=== PATIENT | female | born 1955 | race Caucasian/White ===

== ENCOUNTER 2018-06-24 15:06 | Inpatient (IN) | payer OTHER ==
[~2018-06-24] VITALS: Ht 157.5 cm; Wt 66.8 kg
[~2018-06-24 15:06] MED LIST: FAMO-63 PO; METF500T16 PO
[2018-06-24 15:56] VITALS: BP 139/86
[2018-06-24] MEDS ORDERED: hydrOXYzine 10 MG TABLET PO PRN (16:00)
[2018-06-24] MEDS ORDERED: 0.9 % SODIUM CHLORIDE 10 ML DISP.SYRIN. IV PRN (16:00)
[2018-06-24] MEDS: IV NORMAL SALINE 1000ML BAG 1,000 ML IV SCH (16:34)
[2018-06-24] MEDS: diphenhydrAMINE 50 MG/ML VIAL IVP PRN (16:34)
[2018-06-24] MEDS ORDERED: FAMO40TA57 PO (16:42)
--- NOTE | 2018-06-24 16:44 | PDOC2 ---
GI CONSULT Reason For Consult: Possible obstructive jaundice HPI: HPI: 62 y/o female directly admitted by PCP. Has been ill for 3 weeks w/ pruritus, dark urine, pale stools, decreased appetite, and occasionally felt "queasy." Thought she started looking yellow about 10 days ago. Her had an appointment yesterday and she went along - jaundice was noted and she was advised to follow-up for labs today. Bili 11.6, Alk Phos 403, AST 112, ALT 211. Normal INR, WBC, and Hgb. Cr was 1.17. Hasn't had abdominal imaging - US ordered. H/o GERD controlled w/ Pepcid QD. Lately has noted occasional globus - felt in throat w/ solids, not w/ every meal. No odynophagia. No n/v. No abd pain. No diarrhea or constipation. No hematochezia or melena. H/o bariatric surgery in (performed in area) - she recalls "stapling." She lost 100 pounds after that surgery, gained about 50 back, and then lost about 40 w/ Weight [employer]. Has been losing weight unintentionally recently. Had an EGD in 2003 (w/ bariatric surgery noted) and normal colonoscopy w/ Dr. Wallace in 2011. Denies GB, liver, or pancreas history. Had a cardiac scan recently that showed calcifications; she has an appointment scheduled w/ cardiology. She also was treated w/ atbx for UTI last week. RN asks for IV Benadryl for itching - has Atarax ordered but is NPO now for US. PMH: PMH: DM, GERD, UTI lumbar fusion, tonsillectomy, appendectomy, hysterectomy, rotator cuff repair, bariatric surgery FH: Family History: Cancer (breast - mother, sister (twice), aunt) ROS: GEN: Denies fevers, chills, sweats HEENT: Denies blurred vision, sore throat CV: Denies chest pain RESP: Denies shortness of air, cough GI: Per HPI : +dark urine ENDO: +weight loss NEURO: Denies confusion, dizziness MSK: Denies weakness, joint pain/swelling SKIN: +pruritus +jaundice Vitals: Vitals: Vital Signs Date Time Temp Pulse Resp B/P (MAP) Pulse Ox O2 Delivery O2 Flow Rate FiO2 06/24/18 15:56 97.8 102 14 139/86 (103) 96 Room Air 97.8 Labs: Labs: Laboratory Tests Test 06/24/18 16:08 Glucose (Fingerstick) 230 mg/dL (70-99) Allergies: Coded Allergies: codeine (Verified Allergy, Unknown, 04/13/14) PE: GEN: NAD HEENT: Atraumatic, PERRLA LUNGS: CTAB HEART: RRR ABD: NABS, S/ND/NT EXTREMITY: No edema SKIN: +jaundice NEURO/PSYCH: A & O 3 A/P: A/P: Pruritus, dark urine, pale stools, anorexia, weight loss Elevated bilirubin and Alk Phos GERD - on H2 navin, EGD in 2003 H/o bariatric surgery - ?gastric stapling in CRC screen - normal in 2011 -- Note orders to recheck labs in a.m. and for abd US. Await these. Gave okay for IV Benadryl, will also add Pepcid. ?additional testing later to better define anatomy w/ bariatric surgery history MEHRAN BREWSTER Jun 24, 2018 16:44
[2018-06-24 19:00] VITALS: BP 136/80
[2018-06-24] MEDS: FAMOTIDINE 20 MG TABLET. PO SCH (20:28)
[2018-06-24] MEDS: hydrOXYzine PAMOATE 25 MG CAPSULE PO PRN (20:50)
[2018-06-24 23:59] VITALS: BP 137/80
[2018-06-25] VITALS (7 sets, daily range): BP systolic 118–144; BP diastolic 60–80
[2018-06-25] MEDS: IV NORMAL SALINE 1000ML BAG 1,000 ML IV SCH ×2 (05:54→19:30)
[2018-06-25 07:15] LABS: ALBUMIN 2.6 g/dL (3.4-5.0); CALCIUM 8.6 mg/dL (8.5-10.1); CREATININE 0.7 mg/dL (0.6-1.0); DIRECT BILIRUBIN 8.9 mg/dL (0.0-0.2); GFR 84.2; POTASSIUM 3.5 mmol/L (3.5-5.1); TOTAL BILIRUBIN 10.4 mg/dL (0.2-1.0); TOTAL PROTEIN 6.2 g/dL (6.4-8.2)
--- NOTE | 2018-06-25 07:49 | RAD ---
Abdominal ultrasound, 06/24/2018: HISTORY: Jaundice, itching, abnormal labs, weight loss The gallbladder is distended and contains a small amount of echogenic material along its posterior wall without definite posterior acoustic shadowing. The appearance suggests sludge, although tiny calculi cannot be excluded. The gallbladder wall is not thickened. The intrahepatic ducts and common hepatic duct are dilated. The common hepatic duct measures 18 mm. The common bile duct is dilated down to the level of the head of the pancreas where there appears to be a mass in the pancreatic head region. This hypoechoic structure measures 2.0 x 2.6 x 3.0 cm. The spleen is of normal size. There is a 4.1 cm cyst in the upper pole of the right kidney. The kidneys are otherwise unremarkable. There is atherosclerotic plaquing of the abdominal aorta without evidence of aneurysm. The inferior vena cava is unremarkable. No free fluid is evident in the abdomen. IMPRESSION: 1. Probable mass in the pancreatic head with associated extrahepatic and intrahepatic biliary obstruction. 2. Dilated gallbladder containing sludge. Tiny gallstones cannot be excluded. 3. Right renal cyst. 4. Pancreatic protocol CT scanning is suggested for further evaluation. Electronically signed by: Nolan Still MD (06/25/2018 7:46 AM) [facility]
--- NOTE | 2018-06-25 08:08 | PDOC1 ---
H & P. HPI: Ms. Padilla is a 62-year-old female with past medical history of type 2 diabetes, subclinical hypothyroidism, GERD, who presented to clinic on 06/23/18 with her for his appointment. She was noted to be acutely jaundiced and a physical exam and labs were performed. Labs are significant for elevated bilirubin at 11.5, conjugated hyperbilirubinemia, elevated alkaline phosphatase and AST/ALT. CBC and INR were unremarkable. She was also noted to have a mild acute kidney injury with creatinine at 1.17, baseline done 6 months ago was 0.7 , with normal GFR. She notes symptoms of fatigue, generalized itching, decreased appetite, dark urine, and became aware that her skin was turning slightly yellow approximately 10 days ago. Denies fever, chills. She has had approximately 7-1/2 pounds weight loss since her April 2018 appointment with no significant change in diet, though she has had decreased appetite. She was treated for urinary tract infection last week, which has resolved. She was also started on Lipitor approximately 2-3 weeks ago and this medication was stopped on 06/19/18 out of concern that it was causing itching, but upon reflection patient notes that the itching seemed to started prior to starting lipitor. Of note she had labs performed in October 2017 which were unremarkable including normal bilirubin, normal AST/ALTs, normal hemoglobin. ROS: Constitutional: Denies fever, chills; admits fatigue, weight loss, decreased appetite HEENT: Denies sore throat, vision changes Cardio: Denies chest pain, dyspnea with exertion, syncope, palpitations, edema Pulmonary: Denies shortness of breath, cough, wheezing GI: Denies nausea, vomiting, diarrhea, constipation, abdominal pain : Denies dysuria, frequency, urgency, incontinence Skin: Denies new lesions; admits jaundice, generalized itching Neuro: Denies weakness, paresthesias PMH: As above FAMILY HX: Father from heart attack, mother had heart disease, rheumatoid arthritis, stroke, cancer of unknown primary source. Son has hypertension. A sibling has cancer of unknown primary source. SOCIAL HX: Never smoker, social alcohol use, less than once a month. No recreational drug use. SURGICAL HX: Bariatric surgery in the 1980s, tonsillectomy. MEDS: Reviewed and reconciled ALLERGIES: Reviewed PE: Alert, oriented, no acute distress, ill-appearing EOMI, sclera icteric Neck supple RRR, no murmur CTAB, no wheezes, crackles or rhonchi Soft, NT, ND, normal bowel sounds, no rebound, guarding. Negative Wang's sign. No edema, cyanosis. Normal capillary refill. Jaundice Calm, cooperative, mood/affect within normal limits ASSESSMENT & PLAN: Conjugated hyperbilirubinemia, concern for obstruction Likely pancreatic head mass on US, await CT Generalized itching, likely secondary to hyperbilirubinemia Acute kidney injury, resolved Type 2 diabetes Subclinical hypothyroidism GERD GI following Hydroxyzine PRN itching Discussed findings of US with patient TRUSTY,ESTELA Ryder MD Jun 25, 2018 08:08
--- NOTE | 2018-06-25 09:25 | NUR ---
SW following for discharge planning. Discussed with RN, pt is from home with and gets around fine. RN awaiting scans and GI consult. RN advised no SW needs at this time. SW will continue to follow.
[2018-06-25] MEDS ORDERED: CONTRAST GIVEN. MC PRN (10:00)
[2018-06-25] MEDS ORDERED: IOHEXOL 300 MG/ML 100ML VIAL. IV ONE (10:00)
[2018-06-25] MEDS: diphenhydrAMINE 50 MG/ML VIAL IVP PRN (10:31)
--- NOTE | 2018-06-25 13:07 | PDOC ---
Subjective: Subjective: Doing okay, says discussed US results w/ Dr. Perez. Objective: Vital Signs: Vital Signs Date Time Temp Pulse Resp B/P (MAP) Pulse Ox O2 Delivery O2 Flow Rate FiO2 06/25/18 07:00 98.4 72 17 130/77 (94) 98 Room Air 98.4 Labs: Laboratory Tests Test 06/24/18 16:08 06/24/18 20:18 06/25/18 05:35 06/25/18 07:55 Glucose (Fingerstick) 230 mg/dL 149 mg/dL 172 mg/dL Sodium Level 139 mmol/L Potassium Level 3.5 mmol/L Chloride Level 103 mmol/L Carbon Dioxide Level 23 mmol/L Anion Gap 13 Blood Urea Nitrogen 14 mg/dL Creatinine 0.7 mg/dL Estimated GFR (Cockcroft-Gault) 84.2 Glucose Level 163 mg/dL Calcium Level 8.6 mg/dL Total Bilirubin 10.4 mg/dL Direct Bilirubin 8.9 mg/dL Aspartate Amino Transf (AST/SGOT) 103 U/L Alanine Aminotransferase (ALT/SGPT) 213 U/L Alkaline Phosphatase 408 U/L Total Protein 6.2 g/dL Albumin 2.6 g/dL Test 06/25/18 11:46 Glucose (Fingerstick) 152 mg/dL Imaging: Abd US IMPRESSION: 1. Probable mass in the pancreatic head with associated extrahepatic and intrahepatic biliary obstruction. 2. Dilated gallbladder containing sludge. Tiny gallstones cannot be excluded. 3. Right renal cyst. 4. Pancreatic protocol CT scanning is suggested for further evaluation. Abd CT pending PE: GEN: NAD LUNGS: CTAB HEART: RRR ABD: S/ND/NT NEURO/PSYCH: A & O 3 A/P: Probable pancreatic mass -- Await CT results, consider ERCP vs EUS. MEHRAN BREWSTER Jun 25, 2018 13:07
--- NOTE | 2018-06-25 13:29 | RAD ---
PQRS Compliance statement: One or more of the following individualized dose reduction techniques were utilized for this examination: 1. Automated exposure control. 2. Adjustment of the mA and/or kV according to patient size. 3. Use of iterative reconstruction technique. Indication:PANCREATIC MASS, JAUNDICE, [id number], WATER, NO PRIORS TECHNIQUE: CT abdomen without and with IV contrast with multiplanar reformats. COMPARISON: None FINDINGS: Heart is normal in size. No pericardial or pleural effusion. Clear lung bases. Liver is normal in morphology without focal hepatic lesion. Diffuse moderate intrahepatic biliary duct dilation seen. CBD is dilated measuring 2 cm in the mid segment with abrupt narrowing in the distal segment. Gallbladder is distended without radiopaque gallstone. No pericholecystic inflammatory changes. Main pancreatic duct is nondilated. No pancreatic or peripancreatic inflammatory changes. . Ill-defined 1.1 x 1.7 cm area of hypoenhancement seen in the pancreatic head artery of phase that normalizes on portal venous phase (series 6 image 45). Adrenal glands demonstrate no nodularity. Simple cyst in the upper pole of the right kidney measuring 4.6 x 4.4 cm. No nephrolithiasis or hydronephrosis. No enlarged retroperitoneal adenopathy. Bowel within normal limits. Anastomotic sutures are seen from gastrojejunostomy. No suspicious bony lesion. IMPRESSION: 1. Diffusely dilated intra and extrahepatic bile ducts with abrupt narrowing of the distal CBD. Focal hypoenhancing ill-defined lesion/area in the pancreatic head which is remote from the path of the CBD. No significant main pancreatic duct dilation. Findings are concerning for distal CBD stricture or ampullary mass. Absence of significant main pancreatic dilation argues against pancreatic mass although pancreatic mass is not entirely ruled out. Further evaluation with ERCP recommended. Electronically signed by: Jose Grady DO (06/25/2018 1:26 PM) [id number]
[2018-06-25] MEDS: hydrOXYzine PAMOATE 25 MG CAPSULE PO PRN (20:57)
[2018-06-25] MEDS: FAMOTIDINE 20 MG TABLET. PO SCH (20:57)
[2018-06-26] MEDS: diphenhydrAMINE 50 MG/ML VIAL IVP PRN ×3 (00:08→14:15)
[2018-06-26 03:00] VITALS: BP 132/67
[2018-06-26 04:23] LABS: PROTHROMBIN TIME PATIENT 16.4 SEC (11.7-14.0)
[2018-06-26 04:45] LABS: ALBUMIN 2.7 g/dL (3.4-5.0); TOTAL BILIRUBIN 11.9 mg/dL (0.2-1.0); TOTAL PROTEIN 6.1 g/dL (6.4-8.2)
[2018-06-26 04:46] LABS: ALBUMIN 2.8 g/dL (3.4-5.0); CALCIUM 8.7 mg/dL (8.5-10.1); CREATININE 0.7 mg/dL (0.6-1.0); GFR 84.2; POTASSIUM 3.8 mmol/L (3.5-5.1); TOTAL BILIRUBIN 12.1 mg/dL (0.2-1.0); TOTAL PROTEIN 5.7 g/dL (6.4-8.2)
[2018-06-26] MEDS ORDERED: DEXAMETHASONE SOD PHOS 20 MG/5 ML VIAL. ONE (06:58)
[2018-06-26] MEDS ORDERED: LIDOCAINE 2% PF 5 ML VIAL. ONE (06:58)
[2018-06-26] MEDS ORDERED: PROPOFOL 20 ML IV ONE (06:58)
[2018-06-26] MEDS ORDERED: ONDANSETRON PF 4 MG/2 ML VIAL. ONE (06:58)
[2018-06-26] MEDS ORDERED: FAMOTIDINE 20 MG/2 ML VIAL ONE (06:58)
[2018-06-26] MEDS ORDERED: SUCCINYLCHOLINE 200 MG/10 ML VIAL. ONE (06:58)
[2018-06-26 07:00] VITALS: BP 145/81
--- NOTE | 2018-06-26 07:56 | PDOC ---
SUBJECTIVE Subjective Doing ok this morning. Itching is moderately controlled with Benadryl IV PRN. No pain. No other concerns. OBJECTIVE Objective Reviewed. Vital Signs Vital Signs Date Time Temp Pulse Resp B/P (MAP) Pulse Ox O2 Delivery O2 Flow Rate FiO2 06/26/18 03:00 98.4 73 18 132/67 (88) 100 Room Air 98.4 06/25/18 23:00 98.4 85 18 118/60 (79) 100 Room Air 98.4 06/25/18 20:00 Room Air 06/25/18 19:00 99.1 83 18 144/80 (101) 97 Room Air 99.1 06/25/18 17:12 98.3 93 18 136/73 (94) 97 Room Air 98.3 06/25/18 15:00 98.3 93 18 136/73 (94) 97 Room Air 98.3 06/25/18 11:00 98.1 80 17 131/80 (97) 99 98.1 06/25/18 08:00 Room Air I & O Intake and Output 06/26/18 07:00 Intake Total 0 ml Balance 0 ml Intake Oral 0 ml # Voids 1 PHYSICAL EXAM Physical Exam Alert, oriented, no acute distress EOMI, sclera icteric Neck supple RRR, no murmur CTAB, no wheezes, crackles or rhonchi Soft, NT, ND, normal bowel sounds No edema, cyanosis. Normal capillary refill. Jaundice Calm, cooperative, mood/affect within normal limits ASSESSMENT/PLAN Assessment/Plan Conjugated hyperbilirubinemia, 2/2 obstruction Possible pancreatic head mass on US, CT with possible 1.7x1.1cm mass but no pancreatic ductal dilation Generalized itching, likely secondary to hyperbilirubinemia Acute kidney injury, resolved Type 2 diabetes Subclinical hypothyroidism GERD GI following, ERCP today Hydroxyzine/IV Benadryl PRN itching COMMENT Lab Laboratory Tests Test 06/25/18 07:55 06/25/18 11:46 06/25/18 16:30 06/25/18 20:09 Glucose (Fingerstick) 172 mg/dL (70-99) 152 mg/dL (70-99) 306 mg/dL (70-99) 196 mg/dL (70-99) Test 06/26/18 03:45 06/26/18 07:40 Prothrombin Time 16.4 SEC (11.7-14.0) Prothromb Time International Ratio 1.4 (0.8-1.1) Sodium Level 141 mmol/L (136-145) Potassium Level 3.8 mmol/L (3.5-5.1) Chloride Level 105 mmol/L (98-107) Carbon Dioxide Level 23 mmol/L (21-32) Anion Gap 13 (6-14) Blood Urea Nitrogen 13 mg/dL (7-20) Creatinine 0.7 mg/dL (0.6-1.0) Estimated GFR (Cockcroft-Gault) 84.2 BUN/Creatinine Ratio 19 (6-20) Glucose Level 146 mg/dL (70-99) Calcium Level 8.7 mg/dL (8.5-10.1) Total Bilirubin 12.1 mg/dL (0.2-1.0) Direct Bilirubin 10.0 mg/dL (0.0-0.2) Aspartate Amino Transf (AST/SGOT) 87 U/L (15-37) Alanine Aminotransferase (ALT/SGPT) 186 U/L (14-59) Alkaline Phosphatase 417 U/L (46-116) Total Protein 5.7 g/dL (6.4-8.2) Albumin 2.8 g/dL (3.4-5.0) Albumin/Globulin Ratio 1.0 (1.0-1.7) Glucose (Fingerstick) 150 mg/dL (70-99) ESTELA PICHARDO MD Jun 26, 2018 07:56
[2018-06-26 07:59] LABS: BASO # 0.1 x10^3/uL (0.0-0.2); BASO % 2 % (0-3); EOS # 0.1 x10^3/uL (0.0-0.7); EOS % 2 % (0-3); HEMATOCRIT 35.9 % (36.0-47.0); HEMOGLOBIN 11.8 g/dL (12.0-15.5); LYMPH # 3.7 x10^3/uL (1.0-4.8); LYMPH % 73 % (24-48); MEAN CORPUSCULAR HEMOGLOBIN 28 pg (25-35); MEAN CORPUSCULAR HGB CONC 33 g/dL (31-37); MEAN CORPUSCULAR VOLUME 84 fL (79-100); MONO # 0.5 x10^3/uL (0.0-1.1); MONO % 9 % (0-9); NEUT # 0.8 x10^3uL (1.8-7.7); NEUT % 15 % (31-73); PLATELET COUNT 310 x10^3/uL (140-400); RED BLOOD COUNT 4.26 x10^6/uL (3.50-5.40); RED CELL DISTRIBUTION WIDTH 19.2 % (11.5-14.5); WHITE BLOOD COUNT 5.2 x10^3/uL (4.0-11.0)
[2018-06-26] MEDS ORDERED: IOHEXOL 300 MG/ML 100ML VIAL. ONE (08:24)
[2018-06-26] MEDS ORDERED: IV RINGERS,LACTATED 1000ML 1,000 ML IV SCH (08:30)
[2018-06-26 09:28] LABS: % ATYL 4 % (0-0); % BANDS 1 % (0-9); % EOS 4 % (0-5); % LYMPHS 29 % (24-48); % MONOS 13 % (0-10); % SEGS 49 % (35-66)
[2018-06-26 09:29] LABS: PLT ESTIMATE ADEQUATE (ADEQUATE); TARGET CELLS PRESENT
--- NOTE | 2018-06-26 09:47 | PDOC4 ---
Operative Note Operative Note EGD/ attempted ERCp Meds propofol per anesthesia Pre-op dx obstructive jaundice/abnl Ct scan post-op dx Yuli en Y anastomosis with visualized ampulla but unsuccessful cannulation Plan surgery consult possible [facility] transfer for second Gi opinion/surgical work-up POLY FUNK MD Jun 26, 2018 09:47
--- NOTE | 2018-06-26 10:26 | NUR ---
SW following. Discussed with RN, pt having an ERCP today to determine stones vs tumor. SW will continue to follow for discharge planning, when more information is known.
[2018-06-26 11:00] VITALS: BP 140/80
--- NOTE | 2018-06-26 11:23 | NUR ---
SW following. Discussed with RN, ERCP was unable to be completed due to pt's anatomy being different from a gastric bypass. RN advised pt is needing to be transferred to . [facility] contacted [facility] transfer (ph: [phone], fax: [phone]) to initiate the transfer, and provide Dr. Perez's contact information ([phone]). [facility] faxed requested documents to and contacted radiology to have the images clouded. [facility] advised the wait may be long and it is unlikely pt will be able to transfer today. RN notified. [facility] will continue to follow.
[2018-06-26] MEDS: IV NORMAL SALINE 1000ML BAG 1,000 ML IV SCH (13:33)
--- NOTE | 2018-06-26 14:13 | NUR ---
[facility] following. [facility] received call from transfer advising GI physician is requesting to talk with [facility] GI consulted for pt's care to discuss findings and needs of pt and wanting times Dr. Wallace would be available. [facility] contacted Sonia WADE for Dr. Wallace, who advised Dr. Wallace is declining to speak with ,stating the primary care doctor is the one who normally does that, also stating Dr. Perez can read the operative note in the chart. [facility]ENT[facility] contacted Dr. Perez, who is more than happy to speak with , however is not sure she is able to provide the best information due to not being the GI doctor or the one who did the surgery. [facility] contacted back ([phone]), is wanting to speak to GI specifically and were not very pleased to hear GI was deferring. SW faxing operative note to . Transfer to unlikely today. [facility] will continue to follow.
[2018-06-26 14:53] VITALS: BP 140/79
--- NOTE | 2018-06-26 16:08 | PDOC ---
G I PROGRESS NOTE Review of Relevant I have reviewed the following items telma (where applicable) has been applied. Labs Laboratory Tests Test 06/24/18 16:08 06/24/18 20:18 06/25/18 05:35 06/25/18 07:55 Glucose (Fingerstick) 230 mg/dL (70-99) 149 mg/dL (70-99) 172 mg/dL (70-99) Sodium Level 139 mmol/L (136-145) Potassium Level 3.5 mmol/L (3.5-5.1) Chloride Level 103 mmol/L (98-107) Carbon Dioxide Level 23 mmol/L (21-32) Anion Gap 13 (6-14) Blood Urea Nitrogen 14 mg/dL (7-20) Creatinine 0.7 mg/dL (0.6-1.0) Estimated GFR (Cockcroft-Gault) 84.2 Glucose Level 163 mg/dL (70-99) Calcium Level 8.6 mg/dL (8.5-10.1) Total Bilirubin 10.4 mg/dL (0.2-1.0) Direct Bilirubin 8.9 mg/dL (0.0-0.2) Aspartate Amino Transf (AST/SGOT) 103 U/L (15-37) Alanine Aminotransferase (ALT/SGPT) 213 U/L (14-59) Alkaline Phosphatase 408 U/L (46-116) Total Protein 6.2 g/dL (6.4-8.2) Albumin 2.6 g/dL (3.4-5.0) Test 06/25/18 11:46 06/25/18 16:30 06/25/18 20:09 06/26/18 03:45 Glucose (Fingerstick) 152 mg/dL (70-99) 306 mg/dL (70-99) 196 mg/dL (70-99) White Blood Count 5.2 x10^3/uL (4.0-11.0) Red Blood Count 4.26 x10^6/uL (3.50-5.40) Hemoglobin 11.8 g/dL (12.0-15.5) Hematocrit 35.9 % (36.0-47.0) Mean Corpuscular Volume 84 fL (79-100) Mean Corpuscular Hemoglobin 28 pg (25-35) Mean Corpuscular Hemoglobin Concent 33 g/dL (31-37) Red Cell Distribution Width 19.2 % (11.5-14.5) Platelet Count 310 x10^3/uL (140-400) Neutrophils (%) (Auto) 15 % (31-73) Lymphocytes (%) (Auto) 73 % (24-48) Monocytes (%) (Auto) 9 % (0-9) Eosinophils (%) (Auto) 2 % (0-3) Basophils (%) (Auto) 2 % (0-3) Neutrophils # (Auto) 0.8 x10^3uL (1.8-7.7) Lymphocytes # (Auto) 3.7 x10^3/uL (1.0-4.8) Monocytes # (Auto) 0.5 x10^3/uL (0.0-1.1) Eosinophils # (Auto) 0.1 x10^3/uL (0.0-0.7) Basophils # (Auto) 0.1 x10^3/uL (0.0-0.2) Segmented Neutrophils % 49 % (35-66) Band Neutrophils % 1 % (0-9) Lymphocytes % 29 % (24-48) Atypical Lymphocytes % (Manual) 4 % (0-0) Monocytes % 13 % (0-10) Eosinophils % 4 % (0-5) Platelet Estimate Adequate (ADEQUATE) Target Cells Present Prothrombin Time 16.4 SEC (11.7-14.0) Prothromb Time International Ratio 1.4 (0.8-1.1) Sodium Level 141 mmol/L (136-145) Potassium Level 3.8 mmol/L (3.5-5.1) Chloride Level 105 mmol/L (98-107) Carbon Dioxide Level 23 mmol/L (21-32) Anion Gap 13 (6-14) Blood Urea Nitrogen 13 mg/dL (7-20) Creatinine 0.7 mg/dL (0.6-1.0) Estimated GFR (Cockcroft-Gault) 84.2 BUN/Creatinine Ratio 19 (6-20) Glucose Level 146 mg/dL (70-99) Calcium Level 8.7 mg/dL (8.5-10.1) Total Bilirubin 12.1 mg/dL (0.2-1.0) Direct Bilirubin 10.0 mg/dL (0.0-0.2) Aspartate Amino Transf (AST/SGOT) 87 U/L (15-37) Alanine Aminotransferase (ALT/SGPT) 186 U/L (14-59) Alkaline Phosphatase 417 U/L (46-116) Total Protein 5.7 g/dL (6.4-8.2) Albumin 2.8 g/dL (3.4-5.0) Albumin/Globulin Ratio 1.0 (1.0-1.7) Test 06/26/18 07:40 06/26/18 11:06 Glucose (Fingerstick) 150 mg/dL (70-99) 154 mg/dL (70-99) Laboratory Tests Test 06/25/18 16:30 06/25/18 20:09 06/26/18 03:45 06/26/18 07:40 Glucose (Fingerstick) 306 mg/dL (70-99) 196 mg/dL (70-99) 150 mg/dL (70-99) White Blood Count 5.2 x10^3/uL (4.0-11.0) Red Blood Count 4.26 x10^6/uL (3.50-5.40) Hemoglobin 11.8 g/dL (12.0-15.5) Hematocrit 35.9 % (36.0-47.0) Mean Corpuscular Volume 84 fL (79-100) Mean Corpuscular Hemoglobin 28 pg (25-35) Mean Corpuscular Hemoglobin Concent 33 g/dL (31-37) Red Cell Distribution Width 19.2 % (11.5-14.5) Platelet Count 310 x10^3/uL (140-400) Neutrophils (%) (Auto) 15 % (31-73) Lymphocytes (%) (Auto) 73 % (24-48) Monocytes (%) (Auto) 9 % (0-9) Eosinophils (%) (Auto) 2 % (0-3) Basophils (%) (Auto) 2 % (0-3) Neutrophils # (Auto) 0.8 x10^3uL (1.8-7.7) Lymphocytes # (Auto) 3.7 x10^3/uL (1.0-4.8) Monocytes # (Auto) 0.5 x10^3/uL (0.0-1.1) Eosinophils # (Auto) 0.1 x10^3/uL (0.0-0.7) Basophils # (Auto) 0.1 x10^3/uL (0.0-0.2) Segmented Neutrophils % 49 % (35-66) Band Neutrophils % 1 % (0-9) Lymphocytes % 29 % (24-48) Atypical Lymphocytes % (Manual) 4 % (0-0) Monocytes % 13 % (0-10) Eosinophils % 4 % (0-5) Platelet Estimate Adequate (ADEQUATE) Target Cells Present Prothrombin Time 16.4 SEC (11.7-14.0) Prothromb Time International Ratio 1.4 (0.8-1.1) Sodium Level 141 mmol/L (136-145) Potassium Level 3.8 mmol/L (3.5-5.1) Chloride Level 105 mmol/L (98-107) Carbon Dioxide Level 23 mmol/L (21-32) Anion Gap 13 (6-14) Blood Urea Nitrogen 13 mg/dL (7-20) Creatinine 0.7 mg/dL (0.6-1.0) Estimated GFR (Cockcroft-Gault) 84.2 BUN/Creatinine Ratio 19 (6-20) Glucose Level 146 mg/dL (70-99) Calcium Level 8.7 mg/dL (8.5-10.1) Total Bilirubin 12.1 mg/dL (0.2-1.0) Direct Bilirubin 10.0 mg/dL (0.0-0.2) Aspartate Amino Transf (AST/SGOT) 87 U/L (15-37) Alanine Aminotransferase (ALT/SGPT) 186 U/L (14-59) Alkaline Phosphatase 417 U/L (46-116) Total Protein 5.7 g/dL (6.4-8.2) Albumin 2.8 g/dL (3.4-5.0) Albumin/Globulin Ratio 1.0 (1.0-1.7) Test 06/26/18 11:06 Glucose (Fingerstick) 154 mg/dL (70-99) Medications Current Medications Sodium Chloride (Normal Saline Flush) 3 ml PRN DAILY PRN IV AFTER MEDS AND BLOOD DRAWS; Start 06/24/18 at 16:00 Sodium Chloride 1,000 ml @ 75 mls/hr [id number] IV Last administered on 06/26/18at 13:33; Start 06/24/18 at 16:30 Hydroxyzine HCl (Atarax) 25 mg PRN Q6HRS PRN PO ITCHING; Start 06/24/18 at 16:00 ; Stop 06/24/18 at 20:40; Status DC Diphenhydramine HCl (Benadryl) 25 mg PRN Q6HRS PRN IVP ITCHING, 1st CHOICE Last administered on 06/26/18at 14:15; Start 06/24/18 at 16:30 Famotidine (Pepcid) 20 mg QHS PO Last administered on 06/25/18at 20:57; Start 06/24/18 at 21:00 Hydroxyzine Pamoate (Vistaril) 25 mg PRN Q6HRS PRN PO ITCHING, 2nd CHOICE Last administered on 06/25/18at 20:57; Start 06/24/18 at 20:45 Iohexol (Omnipaque 300 Mg/ml) 75 ml 1X ONCE IV Last administered on 06/25/18at 11:15; Start 06/25/18 at 10:00; Stop 06/25/18 at 10:01; Status DC Info (CONTRAST GIVEN -- Rx MONITORING) 1 each PRN DAILY PRN MC SEE COMMENTS; Start 06/25/18 at 10:00; Stop 06/27/18 at 09:59 Dexamethasone Sodium Phosphate (Decadron) 20 mg STK-MED ONCE .ROUTE ; Start 06/26 at 06:58; Stop 06/26/18 at 06:59; Status DC Propofol 20 ml @ As Directed STK-MED ONCE IV ; Start 06/26/18 at 06:58; Stop 06/26 at 06:59; Status DC Famotidine (Pepcid Vial) 20 mg STK-MED ONCE .ROUTE ; Start 06/26/18 at 06:58; Stop 06/26/18 at 06:59; Status DC Lidocaine HCl (Lidocaine Pf 2% Vial) 5 ml STK-MED ONCE .ROUTE ; Start 06/26/18 at 06:58; Stop 06/26/18 at 06:59; Status DC Ondansetron HCl (Zofran) 4 mg STK-MED ONCE .ROUTE ; Start 06/26/18 at 06:58; Stop 06/26/18 at 06:59; Status DC Succinylcholine Chloride (Anectine) 200 mg STK-MED ONCE .ROUTE ; Start 06/26/18 at 06:58; Stop 06/26/18 at 06:59; Status DC Iohexol (Omnipaque 300 Mg/ml) 100 ml STK-MED ONCE .ROUTE ; Start 06/26/18 at 08: 24; Stop 06/26/18 at 08:25; Status DC Ringer's Solution 1,000 ml @ 100 mls/hr Q10H IV Last administered on 06/26/18at 08:30; Start 06/26/18 at 08:30 Active Scripts Active Reported Pepcid (Famotidine) 40 Mg Tablet 40 Mg PO HS Metformin Hcl 500 Mg Tablet 1 Tab PO BID Vitals/I & O Vital Sign - Last 24 Hours 06/25/18 06/25/18 06/25/18 06/25/18 17:12 19:00 20:00 23:00 Temp 98.3 99.1 98.4 98.3 99.1 98.4 Pulse 93 83 85 Resp 18 18 18 B/P (MAP) 136/73 (94) 144/80 (101) 118/60 (79) Pulse Ox 97 97 100 O2 Delivery Room Air Room Air Room Air Room Air 06/26/18 06/26/18 06/26/18 06/26/18 03:00 07:00 08:20 08:20 Temp 98.4 97.9 97.7 98.4 97.9 97.7 Pulse 73 81 82 Resp 18 18 18 B/P (MAP) 132/67 (88) 145/81 (102) Pulse Ox 100 97 100 O2 Delivery Room Air Room Air Room Air 06/26/18 06/26/18 06/26/18 06/26/18 09:49 10:00 10:12 11:00 Temp 97.1 97.1 97.4 97.8 97.1 97.1 97.4 97.8 Pulse 76 82 80 81 Resp 20 20 20 18 B/P (MAP) 162/72 164/74 181/83 140/80 (100) Pulse Ox 100 100 100 97 O2 Delivery Room Air Room Air Room Air Room Air O2 Flow Rate 8 06/26/18 14:53 Temp 97.9 97.9 Pulse 85 Resp 18 B/P (MAP) 140/79 (99) Pulse Ox 98 O2 Delivery Room Air Intake and Output 3/7/19 3/7/19 3/8/19 15:00 23:00 07:00 Intake Total 0 ml Balance 0 ml Plan of Care Note Per cleveuio with Dr Isbell, Yuli en Y anatomy precluded cannulation with ERCP scope. Colonscopy with end viewing scope did locate ampulla.but cannulation ws unsuccessful >[facility] to attempt next week as o/p as per discussion with GI team. POLY FUNK MD Jun 26, 2018 16:08
--- NOTE | 2018-06-26 16:13 | NUR ---
SW following. Discussed with RN. Dr. Wallace contacted , the plan is for pt to discharge home from [facility] and follow up with outpatient next week to have the procedure done. No further SW needs.
[2018-06-26] MEDS ORDERED: hydrOXYzine PAMOATE 25 MG CAPSULE PO PRN (16:45)
--- NOTE | 2018-06-26 17:58 | PDOC3 ---
Discharge Summary Date of Admission: Jun 24, 2018 Date of Discharge: Jun 26, 2018 Follow-Up: Other (1-2 weeks after ERCP at ) Admitting Diagnosis comment: Conjugated hyperbilirubinemia likely 2/2 obstruction Generalized itching, likely secondary to hyperbilirubinemia FINAL DIAGNOSIS Conjugated hyperbilirubinemia, 2/2 obstruction with unsuccessful ERCP Possible pancreatic head mass on US, CT with possible 1.7x1.1cm mass Generalized itching, likely secondary to hyperbilirubinemia Acute kidney injury, resolved Type 2 diabetes Subclinical hypothyroidism GERD Brief Hospital Course Ms. Padilla is a 62-year-old female with past medical history of type 2 diabetes, subclinical hypothyroidism, GERD, who presented to clinic on 06/23/18 with her for his appointment. She was noted to be acutely jaundiced and a physical exam and labs were performed. Labs are significant for elevated bilirubin at 11.5, conjugated hyperbilirubinemia, elevated alkaline phosphatase and AST/ALT. She was also noted to have a mild acute kidney injury with creatinine at 1.17, baseline done 6 months ago was 0.7, with normal GFR. She noted symptoms of fatigue, generalized itching, decreased appetite, dark urine, and became aware that her skin was turning slightly yellow approximately 10 days prior to admission. She had approximately 7-1/2 pounds weight loss since her April 2018 appointment with no significant change in diet. Abd US was significant for possible pancreatic head mass with extrahepatic and intrahepatic biliary obstruction. CT was then performed and showed extrahepatic and intrahepatic bile ducts with narrowing of the distal CBD and an ill defined lesion of the pancreatic head ~1.1x1.7cm. ERCP was attempted 06/26/18 but was unable to be completed due to post operative changes of the GI tract due to a Yuli-en-Y performed in the . The ampulla was unable to be cannulated. The case was discussed with GI at and it was determined that the patient would have a repeat ERCP at next week. The patient will then be referred to Oncology and/or Surgery if appropriate pending final diagnosis. All home medications will remain the same with the addition of Hydroxyzine PRN for itching. CONDITION AT DISCHARGE: Stable Discharge Medications Current Medications Sodium Chloride (Normal Saline Flush) 3 ml PRN DAILY PRN IV AFTER MEDS AND BLOOD DRAWS; Start 06/24/18 at 16:00 Sodium Chloride 1,000 ml @ 75 mls/hr [id number] IV Last administered on 06/26/18at 13:33; Start 06/24/18 at 16:30 Hydroxyzine HCl (Atarax) 25 mg PRN Q6HRS PRN PO ITCHING; Start 06/24/18 at 16:00 ; Stop 06/24/18 at 20:40; Status DC Diphenhydramine HCl (Benadryl) 25 mg PRN Q6HRS PRN IVP ITCHING, 1st CHOICE Last administered on 06/26/18at 14:15; Start 06/24/18 at 16:30 Famotidine (Pepcid) 20 mg QHS PO Last administered on 06/25/18at 20:57; Start 06/24/18 at 21:00 Hydroxyzine Pamoate (Vistaril) 25 mg PRN Q6HRS PRN PO ITCHING, 2nd CHOICE Last administered on 06/25/18at 20:57; Start 06/24/18 at 20:45 Iohexol (Omnipaque 300 Mg/ml) 75 ml 1X ONCE IV Last administered on 06/25/18at 11:15; Start 06/25/18 at 10:00; Stop 06/25/18 at 10:01; Status DC Info (CONTRAST GIVEN -- Rx MONITORING) 1 each PRN DAILY PRN MC SEE COMMENTS; Start 06/25/18 at 10:00; Stop 06/28/18 at 09:59 Dexamethasone Sodium Phosphate (Decadron) 20 mg STK-MED ONCE .ROUTE ; Start 06/26 at 06:58; Stop 06/26/18 at 06:59; Status DC Propofol 20 ml @ As Directed STK-MED ONCE IV ; Start 06/26/18 at 06:58; Stop 06/26 at 06:59; Status DC Famotidine (Pepcid Vial) 20 mg STK-MED ONCE .ROUTE ; Start 06/26/18 at 06:58; Stop 06/26/18 at 06:59; Status DC Lidocaine HCl (Lidocaine Pf 2% Vial) 5 ml STK-MED ONCE .ROUTE ; Start 06/26/18 at 06:58; Stop 06/26/18 at 06:59; Status DC Ondansetron HCl (Zofran) 4 mg STK-MED ONCE .ROUTE ; Start 06/26/18 at 06:58; Stop 06/26/18 at 06:59; Status DC Succinylcholine Chloride (Anectine) 200 mg STK-MED ONCE .ROUTE ; Start 06/26/18 at 06:58; Stop 06/26/18 at 06:59; Status DC Iohexol (Omnipaque 300 Mg/ml) 100 ml STK-MED ONCE .ROUTE ; Start 06/26/18 at 08: 24; Stop 06/26/18 at 08:25; Status DC Ringer's Solution 1,000 ml @ 100 mls/hr Q10H IV Last administered on 06/26/18at 08:30; Start 06/26/18 at 08:30 Hydroxyzine Pamoate (Vistaril) 25 mg PRN Q6HRS PRN PO ITCHING; Start 06/26/18 at 16:45; Stop 06/26/18 at 16:49; Status DC Active Scripts Active Reported Pepcid (Famotidine) 40 Mg Tablet 40 Mg PO HS Metformin Hcl 500 Mg Tablet 1 Tab PO BID Vital Signs Vital Signs Date Time Temp Pulse Resp B/P (MAP) Pulse Ox O2 Delivery O2 Flow Rate FiO2 06/26/18 14:53 97.9 85 18 140/79 (99) 98 Room Air 97.9 06/26/18 09:49 8 Labs Laboratory Tests Test 06/24/18 20:18 06/25/18 05:35 06/25/18 07:55 06/25/18 11:46 Glucose (Fingerstick) 149 mg/dL (70-99) 172 mg/dL (70-99) 152 mg/dL (70-99) Sodium Level 139 mmol/L (136-145) Potassium Level 3.5 mmol/L (3.5-5.1) Chloride Level 103 mmol/L (98-107) Carbon Dioxide Level 23 mmol/L (21-32) Anion Gap 13 (6-14) Blood Urea Nitrogen 14 mg/dL (7-20) Creatinine 0.7 mg/dL (0.6-1.0) Estimated GFR (Cockcroft-Gault) 84.2 Glucose Level 163 mg/dL (70-99) Calcium Level 8.6 mg/dL (8.5-10.1) Total Bilirubin 10.4 mg/dL (0.2-1.0) Direct Bilirubin 8.9 mg/dL (0.0-0.2) Aspartate Amino Transf (AST/SGOT) 103 U/L (15-37) Alanine Aminotransferase (ALT/SGPT) 213 U/L (14-59) Alkaline Phosphatase 408 U/L (46-116) Total Protein 6.2 g/dL (6.4-8.2) Albumin 2.6 g/dL (3.4-5.0) Test 06/25/18 16:30 06/25/18 20:09 06/26/18 03:45 06/26/18 07:40 Glucose (Fingerstick) 306 mg/dL (70-99) 196 mg/dL (70-99) 150 mg/dL (70-99) White Blood Count 5.2 x10^3/uL (4.0-11.0) Red Blood Count 4.26 x10^6/uL (3.50-5.40) Hemoglobin 11.8 g/dL (12.0-15.5) Hematocrit 35.9 % (36.0-47.0) Mean Corpuscular Volume 84 fL (79-100) Mean Corpuscular Hemoglobin 28 pg (25-35) Mean Corpuscular Hemoglobin Concent 33 g/dL (31-37) Red Cell Distribution Width 19.2 % (11.5-14.5) Platelet Count 310 x10^3/uL (140-400) Neutrophils (%) (Auto) 15 % (31-73) Lymphocytes (%) (Auto) 73 % (24-48) Monocytes (%) (Auto) 9 % (0-9) Eosinophils (%) (Auto) 2 % (0-3) Basophils (%) (Auto) 2 % (0-3) Neutrophils # (Auto) 0.8 x10^3uL (1.8-7.7) Lymphocytes # (Auto) 3.7 x10^3/uL (1.0-4.8) Monocytes # (Auto) 0.5 x10^3/uL (0.0-1.1) Eosinophils # (Auto) 0.1 x10^3/uL (0.0-0.7) Basophils # (Auto) 0.1 x10^3/uL (0.0-0.2) Segmented Neutrophils % 49 % (35-66) Band Neutrophils % 1 % (0-9) Lymphocytes % 29 % (24-48) Atypical Lymphocytes % (Manual) 4 % (0-0) Monocytes % 13 % (0-10) Eosinophils % 4 % (0-5) Platelet Estimate Adequate (ADEQUATE) Target Cells Present Prothrombin Time 16.4 SEC (11.7-14.0) Prothromb Time International Ratio 1.4 (0.8-1.1) Sodium Level 141 mmol/L (136-145) Potassium Level 3.8 mmol/L (3.5-5.1) Chloride Level 105 mmol/L (98-107) Carbon Dioxide Level 23 mmol/L (21-32) Anion Gap 13 (6-14) Blood Urea Nitrogen 13 mg/dL (7-20) Creatinine 0.7 mg/dL (0.6-1.0) Estimated GFR (Cockcroft-Gault) 84.2 BUN/Creatinine Ratio 19 (6-20) Glucose Level 146 mg/dL (70-99) Calcium Level 8.7 mg/dL (8.5-10.1) Total Bilirubin 12.1 mg/dL (0.2-1.0) Direct Bilirubin 10.0 mg/dL (0.0-0.2) Aspartate Amino Transf (AST/SGOT) 87 U/L (15-37) Alanine Aminotransferase (ALT/SGPT) 186 U/L (14-59) Alkaline Phosphatase 417 U/L (46-116) Total Protein 5.7 g/dL (6.4-8.2) Albumin 2.8 g/dL (3.4-5.0) Albumin/Globulin Ratio 1.0 (1.0-1.7) Test 06/26/18 11:06 06/26/18 16:14 Glucose (Fingerstick) 154 mg/dL (70-99) 281 mg/dL (70-99) Laboratory Tests Test 06/25/18 20:09 06/26/18 03:45 06/26/18 07:40 06/26/18 11:06 Glucose (Fingerstick) 196 mg/dL (70-99) 150 mg/dL (70-99) 154 mg/dL (70-99) White Blood Count 5.2 x10^3/uL (4.0-11.0) Red Blood Count 4.26 x10^6/uL (3.50-5.40) Hemoglobin 11.8 g/dL (12.0-15.5) Hematocrit 35.9 % (36.0-47.0) Mean Corpuscular Volume 84 fL (79-100) Mean Corpuscular Hemoglobin 28 pg (25-35) Mean Corpuscular Hemoglobin Concent 33 g/dL (31-37) Red Cell Distribution Width 19.2 % (11.5-14.5) Platelet Count 310 x10^3/uL (140-400) Neutrophils (%) (Auto) 15 % (31-73) Lymphocytes (%) (Auto) 73 % (24-48) Monocytes (%) (Auto) 9 % (0-9) Eosinophils (%) (Auto) 2 % (0-3) Basophils (%) (Auto) 2 % (0-3) Neutrophils # (Auto) 0.8 x10^3uL (1.8-7.7) Lymphocytes # (Auto) 3.7 x10^3/uL (1.0-4.8) Monocytes # (Auto) 0.5 x10^3/uL (0.0-1.1) Eosinophils # (Auto) 0.1 x10^3/uL (0.0-0.7) Basophils # (Auto) 0.1 x10^3/uL (0.0-0.2) Segmented Neutrophils % 49 % (35-66) Band Neutrophils % 1 % (0-9) Lymphocytes % 29 % (24-48) Atypical Lymphocytes % (Manual) 4 % (0-0) Monocytes % 13 % (0-10) Eosinophils % 4 % (0-5) Platelet Estimate Adequate (ADEQUATE) Target Cells Present Prothrombin Time 16.4 SEC (11.7-14.0) Prothromb Time International Ratio 1.4 (0.8-1.1) Sodium Level 141 mmol/L (136-145) Potassium Level 3.8 mmol/L (3.5-5.1) Chloride Level 105 mmol/L (98-107) Carbon Dioxide Level 23 mmol/L (21-32) Anion Gap 13 (6-14) Blood Urea Nitrogen 13 mg/dL (7-20) Creatinine 0.7 mg/dL (0.6-1.0) Estimated GFR (Cockcroft-Gault) 84.2 BUN/Creatinine Ratio 19 (6-20) Glucose Level 146 mg/dL (70-99) Calcium Level 8.7 mg/dL (8.5-10.1) Total Bilirubin 12.1 mg/dL (0.2-1.0) Direct Bilirubin 10.0 mg/dL (0.0-0.2) Aspartate Amino Transf (AST/SGOT) 87 U/L (15-37) Alanine Aminotransferase (ALT/SGPT) 186 U/L (14-59) Alkaline Phosphatase 417 U/L (46-116) Total Protein 5.7 g/dL (6.4-8.2) Albumin 2.8 g/dL (3.4-5.0) Albumin/Globulin Ratio 1.0 (1.0-1.7) Test 06/26/18 16:14 Glucose (Fingerstick) 281 mg/dL (70-99) Allergies Allergies Coded Allergies Type Severity Reaction Last Updated Verified codeine Allergy Intermediate 06/26/18 Yes Disposition/Orders: D/C to Home ESTELA PICHARDO MD Jun 26, 2018 17:58
--- NOTE | 2018-06-29 09:16 | RAD ---
ERCP, 2018: HISTORY: Obstructive jaundice, pancreatic mass Attempted cannulation of the common bile duct by Dr. Wallace were unsuccessful. 22 seconds of fluoroscopy time was utilized. No fluoroscopic spot images were recorded. Electronically signed by: Nolan Still MD (06/29/2018 9:13 AM) [facility]
== END 2018-06-26 17:40 | disposition home or self-care (01) | DRG 445 ==
LOC: 5 SOUTH 15:34
PROVIDERS: ADMIT Family Medicine; ATTEND Family Medicine
PROC: 0FJB8ZZ Inspection of Hepatobiliary Duct, Via Natural or Artificial Opening Endoscopic (ICD-10-PCS; principal; 2018-06-26 09:00)
DX: K83.1 Obstruction of bile duct (principal); N17.9 Acute kidney failure, unspecified; E44.1 Mild protein-calorie malnutrition; K86.9 Disease of pancreas, unspecified; R63.0 Anorexia; L29.9 Pruritus, unspecified; E03.9 Hypothyroidism, unspecified; K21.9 Gastro-esophageal reflux disease without esophagitis; E11.9 Type 2 diabetes mellitus without complications; Z80.3 Family history of malignant neoplasm of breast; Z90.710 Acquired absence of both cervix and uterus; Z68.26 Body mass index [BMI] 26.0-26.9, adult; Z79.899 Other long term (current) drug therapy
CPT/HCPCS: 36415; 43260; 74160; 74329; 76700; 80048; 80053; 80076; 82962; 85007; 85025; 85610; 86301; C1757; J0330; J1100; J1200; J2001; J2405; J2704; J3490; J7030; J7120; Q0177; Q9967